=== PATIENT | female | born 1985 | race Two or more races ===

== ENCOUNTER 2025-07-20 15:39 | Emergency (ER) | payer MEDICAID, OTHER ==
[~2025-07-20] VITALS: Ht 165.1 cm; Wt 91.3 kg
--- NOTE | 2025-07-20 16:26 | ED.PDOC ---
HPI Allergic reaction HPI Comments A 40 YEAR OLD FEMALE PRESENTS TO THE ED WITH COMPLAINT OF FACIAL REDNESS ASSOCIATED WITH SWELLING AND DRY LIPS THAT STARTED 3 DAYS AGO S/P USING A NEW COSMETIC FACIAL PRODUCT. PATIENT REPORTS DISCONTINUED USE IMMEDIATELY BUT STATES TODAY WOKE UP WITH WORSENING SWELLING TO EYE LIDS. PATIENT HAS BEEN TAKING BENADRYL EVERY 6 HOURS WITH LAST DOSE TAKEN AT 10:00AM. PATIENT DENIES FEVER, CHILLS, SHORTNESS OF BREATH, CHEST PAIN, ABDOMINAL PAIN, NAUSEA, VOMITING, HEADACHE, OR OTHER COMPLAINTS. NO OTHER SYMPTOMS OR MODIFYING FACTORS AT THIS TIME. PATIENT IS ALERT, ORIENTED X 4, AND HAS STEADY GAIT. Chief Complaint: Allergic Reaction Time Seen by MD: 16:15 Reviewed Notes: Nurses Notes, Medications, Allergies Allergies: Coded Allergies: NO KNOWN ALLERGIES (Unverified , 07/20/25) Home Meds Active Scripts Cephalexin Monohydrate (Cephalexin) 500 Mg Cap, 1 CAP PO QID, #28 CAP Prov:MYLENE COURTNEY 07/20/25 Triamcinolone Acetonide (Triamcinolone Acetonide) 0.025 % Cre, 1 APPLIC TOP BID, #30 GRAMS Prov:MYLENE COURTNEY 07/20/25 Methylprednisolone (Medrol Dosepak) 4 Mg Parth, 4 MG PO UD, #21 TAB UAD Prov:MYLENE COURTNEY 07/20/25 Information Source: Patient Mode of Arrival: Ambulatory Severity: Moderate Rash: Moderate SOB: None Difficulty swallowing: None Pruritus: Mild Timing: Days (3) Duration: Since onset Location: Face Exposed to: Cosmetic Developed: Facial Swelling, Rash Modyifying Factors: Diphenhydramine Associated Sign and Symptoms: Other Past Medical History PAST MEDICAL HISTORY: Denies Surgical History: Denies all surgeries 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 Family History Family History: Reviewed,noncontributory to illness Social History Smoker: Non-Smoker Alcohol: Denies ETOH Use Drugs: Denies Drug Use Lives In: Home Constitutional: denies: chills, diaphoresis, fatigue, fever, malaise, sweats, weakness, others EENTM: denies: blurred vision, double vision, ear bleeding, ear discharge, ear drainage, ear pain, ear ringing, eye pain, eye redness, hearing loss, mouth pain, mouth swelling, nasal discharge, nose bleeding, nose congestion, nose pain, photophobia, tearing, throat pain, throat swelling, voice changes, others Respiratory: denies: cough, hemoptysis, orthopnea, SOB at rest, shortness of breath, SOB with excertion, stridor, wheezing, others Cardiovascular: denies: chest pain, dizzy spells, diaphoresis, Dyspnea on exertion, edema, irregular heart beat, left arm pain, lightheadedness, palpitations, PND, syncope, others Gastrointestinal: denies: abdomen distended, abdominal pain, blood streaked bowels, constipated, diarrhea, dysphagia, difficulty swallowing, hematemesis, melena, nausea, poor appetite, poor fluid intake, rectal bleeding, rectal pain, vomiting, others Genitourinary: denies: abnormal vagina bleeding, burning, dyspareunia, dysuria, flank pain, frequency, hematuria, incontinence, pain, , vagina discharge, urgency, others Neurological: denies: dizziness, fainting, headache, left sided numbness, left sided weakness, numbness, paresthesia, pre-existing deficit, right sided numbness, right sided weakness, seizure, speech problems, tingling, tremors, weakness, others Musculoskeletal: denies: back pain, gout, joint pain, joint swelling, muscle pain, muscle stiffness, neck pain, others Integumetry: reports: rash; denies: bruises, change in color, change in hair/nails, dryness, laceration, lesions, lumps, wounds, others Allergic/Immunocompromised: reports: Hives, Itching, others (FACIAL REDNESS WITH BURNING SENSATION ); denies: Difficulty Healing, Frequent Infections Hematologic/Lymphatic: denies: anemia, blood clots, easy bleeding, easy bruising, swollen glands, others Endocrine: denies: excessive hunger, excessive sweating, excessive thirst, excessive urination, flushing, intolerance to cold, intolerance to heat, unexplained weight gain, unexplained weight loss, others Psychiatric: denies: anxiety, bipolar disorder, depression, hopeless, panic disorder, schizophrenia, sleepless, suicidal, others All Other Systems: Reviewed and Negative Physical Exam General Appearance: No Apparent Distress, Obese HEENT: Eye Lid (L) (REDNESS AND SWELLING.), Eye Lid (R) (REDNESS AND SWELLING. ), Normal ENT Inspection, PERRL/EOMI, Pharynx Normal, TMs Normal Neck: Full Range of Motion, Non-Tender, Normal, Normal Inspection Respiratory: Chest Non-Tender, Lungs Clear, No Accessory Muscle Use, No Respiratory Distress, Normal Breath Sounds Cardiovascular: No Edema, No JVD, No Murmur, No Gallop, Normal Peripheral Pulses, Regular Rate/Rhythm Breast Exam: Deferred Gastrointestinal: No Organomegaly, Non Tender, No Pulsatile Mass, Normal Bowel Sounds, Soft Genitalia: Deferred Pelvic: Deferred Rectal: Deferred Extremities: No calf tenderness, Normal capillary refill, Normal inspection, N ormal range of motion, Non-tender, No pedal edema Musculoskeletal : Apperance: Normal Neurologic: Alert, freight sorter II-XII nml as Tested, No Motor Deficits, Normal Affect, Normal Mood, No Sensory Deficits Cerebellar Function: Normal Reflexes: Normal Skin: Dry, Rash (ERYTHEMA SKIN RASH WITH HIVES AND MILD SWELLING ON FOREHEAD, CHEEKS AND CHIN. NO OPEN WOUND SEEN. ), Warm Peripheral Pulses: 2+ carotid (R), 2+ carotid (L) Lymphatic: No Adenopathy Was a procedure done? Was a procedure done?: No Differential diagnosis (all) Differential Diagnosis: Angioedema, Bronchospasm, Contact Dermatitis, Drug Reaction, Urticaria X-Ray, Labs, Meds, VS Vital Signs Date Time Temp Pulse Resp B/P (MAP) Pulse Ox O2 Delivery O2 Flow Rate FiO2 07/20/25 16:32 76 18 97 Room Air 07/20/25 16:32 98.1 76 18 126/75 (92) 97 98.1 07/20/25 15:41 98.3 88 18 137/94 99 98.3 Current Medications Medications (Trade) Dose Ordered Sig/Ming Route Start Time Stop Time Status Last Admin Methylprednisolone Sodium Succinate (Solu Medrol) 125 mg ONCE ONCE IV 07/20/25 16:30 07/20/25 16:31 DC 07/20/25 16:35 Diphenhydramine HCl (Benadryl Injection) 50 mg ONCE ONCE IV 07/20/25 16:30 07/20/25 16:31 DC 07/20/25 16:34 Epinephrine HCl 0.3 mg ONCE ONCE IM 07/20/25 16:30 07/20/25 16:31 DC 07/20/25 16:31 Sodium Chloride 1,000 ml @ 1,000 mls/hr Q1H ONCE IV 07/20/25 16:30 9/5/25 17:29 DC 07/20/25 16:35 X-Ray, Labs, Meds, VS Comment EXTERNAL MEDICAL RECORDS REVIEWED: [NONE] INDEPENDENT HISTORIANS: [NONE] SOCIAL DETERMINANTS OF HEALTH: [NONE] LABS ORDERED: NONE REVIEWED AND INTERPRETED RESULTS: NONE IMAGING ORDERED: NONE TREATMENTS ORDERED: EPI 0.3MGIM, IV NS, AND BENADRYL 50MG IV AND METHYLPRED NISOLONE 125MG IV PROCEDURES PERFORMED: NONE CRITICAL CARE TIME: NONE I HAVE DISCUSSED THE PATIENT WITH THE ATTENDING PHYSICIAN, . HE AGREES WITH THE PATIENT'S PLAN OF CARE AND DISPOSITION. BASED ON HISTORY OF PRESENT ILLNESS, AND PHYSICAL EXAM, PATIENT WILL BE DISCHARGED HOME. DISCUSSED PLAN FOR DISCHARGE HOME WITH RX HYDROCORTISONE TOPICAL CREAM, KEFLEX 500MG, AND METHYLPREDNISOLONE PACK AND MEDICATION WARNINGS GIVEN. SHARED DECISION MAKING: DISCUSSED WITH PATIENT THAT THEIR WORKUP WAS NORMAL. PATIENT INSTRUCTED TO FOLLOW UP WITH PRIMARY CARE PROVIDER IN 1-2 DAYS FOR RE- EVALUATION OF SYMPTOMS. PATIENT VERBALIZES UNDERSTANDING TO RETURN TO ED FOR NEW OR WORSENING SYMPTOMS OR IF FOLLOW UP WITH PCP CANNOT BE OBTAINED. PATIENT FEELS COMFORTABLE GOING HOME AT THIS TIME. ALL QUESTIONS ADDRESSED AT TIME OF DISCHARGE. Time of 1ST Reevaluation: 17:53 Reevaluation 1ST: Improved Patient Education/Counseling: Diagnosis, Treatment, Need For Follow Up Family Education/Counseling: Diagnosis, Treatment, No Family Present Medical Screening: No EMC Exist At This Time SEPSIS Sepsis Screen Date sepsis recognized/suspect: Jul 20, 2025 Time Sepsis recognized/suspect: 1541 Recent Procedure: No On Antibiotic Therapy: No Respiratory Rate >20: No Heart Rate >90: No Temp<36 C (96.8 F) or >38.3 C: No SBP <90 or MAP <65 mmHG: No New Acute Mental Status Change: No Is the patient on CPAP, BIPAP,: No Physician Orders Heplock Iv (07/20/25 ) Vital Signs Date Time Temp Pulse Resp B/P (MAP) Pulse Ox O2 Delivery O2 Flow Rate FiO2 07/20/25 16:32 76 18 97 Room Air 07/20/25 16:32 98.1 76 18 126/75 (92) 97 98.1 07/20/25 15:41 98.3 88 18 137/94 99 98.3 Medications Medications Dose Ordered Sig/Ming Route Start Time Stop Time Status Last Admin Dose Admin Diphenhydramine HCl 50 mg ONCE ONCE IV 07/20/25 16:30 07/20/25 16:31 DC 07/20/25 16:34 Epinephrine HCl 0.3 mg ONCE ONCE IM 07/20/25 16:30 07/20/25 16:31 DC 07/20/25 16:31 Methylprednisolone Sodium Succinate 125 mg ONCE ONCE IV 07/20/25 16:30 07/20/25 16:31 DC 07/20/25 16:35 Sodium Chloride 1,000 ml @ 1,000 mls/hr Q1H ONCE IV 07/20/25 16:30 07/20/25 17:29 DC 07/20/25 16:35 Departure 1 Departure Time of Disposition: 17:53 Impression: Primary Impression: Allergic contact dermatitis Qualified Codes: L23.2 - Allergic contact dermatitis due to cosmetics Disposition: HOME / SELF CARE / HOMELESS Condition: Stable Additional Instructions: FOLLOW-UP WITH PCP IN 1 TO 2 DAYS. TAKE MEDICATIONS PRESCRIBED. RETURN TO ED FOR ANY NEW OR WORSENING SYMPTOMS. e-Prescriptions Cephalexin Monohydrate (Cephalexin) 500 Mg Cap 1 CAP PO QID, #28 CAP Prov: MYLENE COURTNEY 07/20/25 Triamcinolone Acetonide (Triamcinolone Acetonide) 0.025 % Cre 1 APPLIC TOP BID, #30 GRAMS Prov: MYLENE COURTNEY 07/20/25 Methylprednisolone (Medrol Dosepak) 4 Mg Parth 4 MG PO UD, #21 TAB UAD Prov: MYLENE COURTNEY 07/20/25 Discharged With: Self Critical Care Note Critical Care Time?: No Stability Stability form required: No I personally scribed for MYLENE COURTNEY ([email or web address]) on 07/20/25 at 16:26. Electronically submitted by Chana Rivera ([facility]). I personally scribed for MYLENE COURTNEY ([email or web address]) on 07/20/25 at 17:32. Electronically submitted by Chana Rivera ([facility]). MYLENE COURTNEY Jul 20, 2025 16:26
[2025-07-20 16:32] VITALS: BP 126/75; PULSE 76; RESP 18; TEMP 98.1; O2SAT 97
[2025-07-20] MEDS: diphenhdrAMINE HCL 50 MG/1 ML VL IV ONE (16:34)
[2025-07-20] MEDS: SODIUM CHLORIDE 0.9% 1,000 ML IV ONE (16:35)
[2025-07-20] MEDS: methylPREDNISolone SOD SUCC 125 MG/2 ML VL IV ONE (16:35)
[2025-07-20] MEDS ORDERED: CEPH500C PO (17:50)
[2025-07-20] MEDS ORDERED: METH4PAK PO (17:50)
[2025-07-20] MEDS ORDERED: TRIA0.02 TOP (17:50)
== END 2025-07-20 17:55 | disposition home or self-care (01) ==
LOC: ER 15:39
DX: L23.2 Allergic contact dermatitis due to cosmetics (principal); Z79.899 Other long term (current) drug therapy
CPT/HCPCS: 96361; 96372; 96374; 96375; 99284; J0169; J1200; J2919; J7030